=== PATIENT | female | born 1990 | race African-American/Black ===

== ENCOUNTER 2018-06-18 16:21 | Observation (INO) ==
--- NOTE | 2018-06-18 16:40 | Emergency Department Note ---
ED Disposition Clinical Impression: Addisons disease, Dehydration, Hypocalcemia Disposition: Still a Patient Condition on Discharge: Fair Referrals: Provider,Referral, [Primary Care Provider] - - Critical Care Critical Care Time: No Attestation: On 06/18/18, the high probability of a clinically significant, sudden or life threatening deterioration of the following system(s) required my full and direct attention, intervention and personal management. The time I documented below is in addition to time spent performing reported procedures but includes the following listed in this critical care notation. Medical Decision Making - Baldo Inquiry Pt receiving controlled substance: No Vital Signs: 06/18/18 16:22 06/18/18 18:23 Temperature 99.9 F H Temperature Source Oral Pulse Rate [Left Radial] 133 H 115 H Respiratory Rate 24 16 Blood Pressure [Right Arm] 123/78 132/83 Blood Pressure Mean [Right Arm] 93 99 Blood Pressure Source [Right Arm] Automatic Cuff Automatic Cuff Blood Pressure Position [Right Arm] Sitting Sitting 02 Sat by Pulse Oximetry 98 98 Oxygen Delivery Method Room Air Room Air - Lab Data Lab Results 06/18/18 16:32: Urine Color Yellow, Urine Appearance Clear, Urine pH 7.5, Ur Specific [place] 1.010, Urine Protein Negative, Urine Glucose (UA) Negative, Urine Ketones Negative, Urine Blood Negative, Urine Nitrate Negative, Urine Bilirubin Negative, Urine Urobilinogen 0.2, Ur Leukocyte Esterase Negative, U rine RBC None, Urine WBC None, Ur Squamous Epith Cells Occasional, Urine Bacteria Trace 06/18/18 16:32: Urine Opiates Screen Positive H, Urine Methadone Screen Negative, Ur Barbituates Screen Negative, Ur Phencyclidine Scrn Negative, Ur Amphetamines Screen Negative, U Benzodiazepines Scrn Negative, Urine Cocaine Screen Negative, U Marijuana (THC) Screen Positive H 06/18/18 16:32: Urine HCG, Qual Negative 06/18/18 16:57: WBC 13.1 H, RBC 5.72 H, Hgb 14.8, Hct 46.6, MCV 81.5, MCH 25.9 L , MCHC 31.8, RDW 14.7, Plt Count 698 H, MPV 7.2 L, Neut % (Auto) 60.6, Lymph % (Auto) 27.1, [place] % (Auto) 10.7 H, Eos % (Auto) 1.1, Baso % (Auto) 0.4, Neut # (Auto) 8.0 H, Lymph # (Auto) 3.6, [place] # (Auto) 1.4 H, Eos # (Auto) 0.2, Baso # (Auto) 0.1 06/18/18 16:57: Sodium 129 L, Potassium 4.0, Chloride 91 L, Carbon Dioxide 27, Anion Gap 15.0, BUN 6 L, Creatinine 0.76, Estimated Creat Clear 82, Estimated GFR 90, Est GFR ( Amer) 109, Glucose 88, Calcium 7.5 L, Total Bilirubin 0.5, AST 69 H, ALT 47, Alkaline Phosphatase 152 H, Total Protein 8.4 H, Albumin 3.4, Globulin 5.0 H, Albumin/Globulin Ratio 0.7 L 06/18/18 16:57: Lactate 1.7 06/18/18 17:10: Influenza Type A Ag Negative, Influenza Type B Ag Negative Result diagrams: 06/18/18 16:57 06/18/18 16:57 Orders (Tests/Meds): ED MEDICATIONS Generic Name Dose Route Start Last Admin Trade Name Freq PRN Reason Stop Dose Admin Sodium Chloride 1,000 mls @ 999 mls/hr 06/18/18 16:45 06/18/18 16:51 Sod Chlor 0.9% 1000ml Bag IV 06/18/18 17:45 999 mls/hr .[id number] LIONEL Administration Discontinued Medications Generic Name Dose Route Start Last Admin Trade Name Freq PRN Reason Stop Dose Admin Hydrocortisone Sodium Succinate 100 mg 06/18/18 16:39 06/18/18 16:51 Solu-Cortef 100mg Vial IV 06/18/18 16:40 100 mg ONCE ONE Administration Ketorolac Tromethamine 15 mg 06/18/18 18:10 06/18/18 18:20 Toradol 30mg/Ml Vial IV 06/18/18 18:11 15 mg ONCE ONE Administration ORDERS Category Date Time Status XR chest portable Stat Exams 06/18/18 16:40 Taken Blood Culture Stat Micro 06/18/18 16:57 Ordered - Radiology Data #1 Image(s): Chest Image Reviewed: Yes I reviewed the patient's radiology image No acute disease. Probable nipple shadow on right. - ECG Data Tracing #1 EKG interpreted by Richie uLke MD: Rhythm: sinus tachycardia Rate: [address]: normal Ectopy: none Conduction: normal ST Segment Changes: none T Wave Changes: none Q Waves: none No evidence of acute ischemia or injury - Physician Consults Physician Consulted: Guille Time: 18:26 Reason -: Admission Comment/Response: Agrees to admit the patient to the hospital. We discussed the patient's clinical information, including history, exam, laboratory and radiology results and ED course. Per hospital procedure, I will write temporary bridge inpatient orders on the patient. Specific orders requested by the admitt ing physician: Admit to Dr. Han. Continue IV fluids, restart calcium, prednisone, Florinef. Medical Decision Narrative: 6:14 PM: Discussed test results. Discussed positive drug test. She states she took a couple of pills from a friend 2 days ago. States she smoked marijuana last night. General Adult HPI - General Chief complaint: Weakness Stated complaint: Weakness, Poor urine output Time Seen by Provider: 06/18/18 16:30 Mode of Arrival: EMS Limitations: No Limitations Description of Symptoms (Recalled from ER Triage Doc. by RN): to ed per squad with c/o generalized weakness, fatique, back pain, decreased urine output. hx of autoimmune dz pt states out of prednisone x 1 week. states PCP dismissed her and she has not found a new dr. c/o fever chills at home. - History of Present Illness HPI narrative: Brought in by ambulance. Complains of generalized weakness, low back pain, subjective low-grade fever, decreased urinary output for the past several days. States she believes it is because she ran out of her steroids 1 wk ago. She has [place]'s disease and is on Florinef and prednisone. She says that she ran out 1 week ago because she no longer has a primary care provider. Her last primary care provider dismissed her because of missed appointments. She also used to see a specialist at [facility] in [place] and they dismissed her because of missed appointments as well. Denies vomiting or diarrhea. She is a smoker. Nondrinker. Denies current drug use, but states that she is a former user. IV heroin and snorting heroin, last used a couple of months ago. States that she was on Florinef 0.1 mg daily and prednisone 10 mg daily. States that prednisone works better for her than hydrocortisone orally, but when she needs intravenous meds, hydrocortisone or Solu-Medrol is used. - Related Data Home Medications Medication Instructions Recorded Confirmed Calcium Carbonate [Calcium] 1,000 mg PO BID 12/31/17 06/18/18 predniSONE [Prednisone 20mg 20 mg PO DAILY 12/31/17 06/18/18 Tab] Allergies Allergy/AdvReac Type Severity Reaction Status Date / Time vancomycin [VANCOMYCIN] Allergy Severe SWELLING Verified 12/31/17 17:26 [facility] History - Hepatitis A Screen Drug use history?: No High risk sexual behaviors?: No History of sexually transmitted infection?: No Currently employed?: No Childcare worker?: No Do you have indoor plumbing?: Yes Do you have electricity?: Yes Attestation statement:: This patient has been screened for Hepatitis A risk factors. Medical History: Denies:: Diabetes Mellitus Type 1, Diabetes Mellitus Type 2 Laterality Cases: Bilateral: Tonsillectomy - Social History Smoking Status: Current every day smoker Tobacco Type: cigarettes Alcohol Intake: never Substance Use Type: heroin - Psychiatric History Expresses thoughts of harming self/others: None Suicide Plan Description: No Plan ROS Obtained: Yes All systems reviewed & no additional complaints - Constitutional Constitutional: Reports fatigue, Reports fever(s), Reports malaise, Reports weakness - Gastrointestinal Gastrointestingal: Denies: abdominal pain, diarrhea, nausea, vomiting - Musculoskeletal Musculoskeletal: Reports back pain Physical Exam - General General appearance: alert, in no apparent distress, cachectic - Head Head exam: atraumatic, normocephalic - Eye Eye exam: Present: PERRL, EOMI - ENT ENT exam: Present: mucous membranes dry - Neck Neck exam: Present: normal inspection, trachea midline - Chest Chest inspection: Present: normal inspection, symmetric chest wall rise - Respiratory Respiratory exam: Present: normal lung sounds bilaterally. Absent: respiratory distress - Cardiovascular Cardiovascular exam: Present: normal rhythm, tachycardia, normal heart sounds - Abdominal Exam Abdominal exam: Present: soft. Absent: distention, tenderness - Extremities Exam Extremities exam: Present: normal inspection. Absent: pedal edema - Neurological Exam Neurological exam: Present: alert, oriented X3, CN II-XII intact. Absent: motor sensory deficit - Psychiatric Psychiatric exam: Present: flat affect - Skin Skin exam: Present: warm, dry, other (vitiligo)
[2018-06-18 17:05] LABS: Amphetamine/Metha Screen,Urine Negative ng/mL (<1000); Barbiturates Screen,Urine Negative ng/mL (<200); Benzodiazepines Screen,Urine Negative ng/mL (<200); Cannabinoid Screen,Urine Positive ng/mL (<50); Cocaine Screen,Urine Negative ng/mL (<300); Methadone Screen,Urine Negative ng/mL (<300); Opiate Screen,Urine Positive ng/mL (<300); Phencyclidine Screen,Urine Negative ng/mL (<25)
[2018-06-18 17:11] LABS: Basophils # 0.1 K/mm3 (0-0.2); Basophils % 0.4 % (0.1-2.0); Eosinophils # 0.2 K/mm3 (0.0-0.4); Eosinophils % 1.1 % (0.1-12.0); Hematocrit 46.6 % (37.0-47.0); Hemoglobin 14.8 g/dL (12.2-16.2); Lymphocytes # 3.6 K/mm3 (0.7-4.5); Lymphocytes % 27.1 % (10-50); Mean Corpuscular HGB Conc 31.8 g/dL (31.8-35.4); Mean Corpuscular Hemoglobin 25.9 pg (27.0-31.2); Mean Corpuscular Volume 81.5 fl (81-99); Mean Platelet Volume 7.2 fl (7.4-10.4); Monocytes # 1.4 K/mm3 (0.1-1.0); Monocytes % 10.7 % (1.7-9.3); Neutrophils % 60.6 % (37.0-80.0); Platelet Count 698 K/mm3 (142-424); Red Blood Count 5.72 M/mm3 (4.20-5.40); Red Cell Distribution Width 14.7 % (11.5-17.5); White Blood Count 13.1 K/mm3 (4.8-10.8)
[2018-06-18 17:28] LABS: Albumin Level 3.4 gm/dL (3.4-5.0); Albumin/Globulin Ratio 0.7 (1.1-1.8); Bilirubin,Total 0.5 mg/dL (0.2-1.0); Calcium 7.5 mg/dL (8.5-10.1); Total Protein,Serum 8.4 gm/dL (6.4-8.2)
--- NOTE | 2018-06-18 20:55 | Progress Note ---
Internal Medicine - PN: Subj *Date: 06/18/18 *Time: 20:50 Interval history: This 28-year-old black female was admitted from the emergency room. 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 She states that she has not had steroid medication over the past week and has become ill. She is having diarrhea. Nausea without vomiting. She does not have a primary care physician. She was dismissed from the practice due to her missing appointments. She has been an IV drug user. Her drug screen on admission shows positivity for opioids and for marijuana. She states that she has not used heroin in about 2 months but took some prescription pain medicine 2 days ago. She was hydrated and tachycardic on admission to the emergency room. Her heart rate was in excess of 120. This has stabilized with some IV fluids infused. Her current heart rate is 100. She has also received IV steroids. She complains of watery diarrhea and requests Imodium. Her white blood cell count was elevated and her temperature is 99 degrees. Exam Vital signs and Labs for Last 24 Hours: Temp Pulse Resp BP Pulse Ox 98.5 F 86 17 129/79 98 06/18/18 19:59 06/18/18 19:59 06/18/18 19:59 06/18/18 19:59 06/18/18 18:23 Laboratory Results - last 24 hr 06/18/18 16:32: Urine Color Yellow, Urine Appearance Clear, Urine pH 7.5, Ur Specific [place] 1.010, Urine Protein Negative, Urine Glucose (UA) Negative, Urine Ketones Negative, Urine Blood Negative, Urine Nitrate Negative, Urine Bilirubin Negative, Urine Urobilinogen 0.2, Ur Leukocyte Esterase Negative, Urine RBC None, Urine WBC None, Ur Squamous Epith Cells Occasional, Urine Bacteria Trace 06/18/18 16:32: Urine Opiates Screen Positive H, Urine Methadone Screen Negative, Ur Barbituates Screen Negative, Ur Phencyclidine Scrn Negative, Ur Amphetamines Screen Negative, U Benzodiazepines Scrn Negative, Urine Cocaine Screen Negative, U Marijuana (THC) Screen Positive H 06/18/18 16:32: Urine HCG, Qual Negative 06/18/18 16:57: WBC 13.1 H, RBC 5.72 H, Hgb 14.8, Hct 46.6, MCV 81.5, MCH 25.9 L , MCHC 31.8, RDW 14.7, Plt Count 698 H, MPV 7.2 L, Neut % (Auto) 60.6, Lymph % (Auto) 27.1, [place] % (Auto) 10.7 H, Eos % (Auto) 1.1, Baso % (Auto) 0.4, Neut # (Auto) 8.0 H, Lymph # (Auto) 3.6, [place] # (Auto) 1.4 H, Eos # (Auto) 0.2, Baso # (Auto) 0.1 06/18/18 16:57: Sodium 129 L, Potassium 4.0, Chloride 91 L, Carbon Dioxide 27, Anion Gap 15.0, BUN 6 L, Creatinine 0.76, Estimated Creat Clear 82, Estimated GFR 90, Est GFR ( Amer) 109, Glucose 88, Calcium 7.5 L, Total Bilirubin 0.5, AST 69 H, ALT 47, Alkaline Phosphatase 152 H, Total Protein 8.4 H, Albumin 3.4, Globulin 5.0 H, Albumin/Globulin Ratio 0.7 L 06/18/18 16:57: Lactate 1.7 06/18/18 17:10: Influenza Type A Ag Negative, Influenza Type B Ag Negative I & O for Last 24 hours: Intake & Output 06/16/18 06/17/18 06/18/18 06/19/18 11:59 11:59 11:59 11:59 Weight 105 lb - Constitutional chronically ill appearing - *Routine HEENT Exam Head: Present: normocephalic Eye: Present: PERRL ENT: Present: mucous membranes dry (She has areas of vitiligo in the periorbital areas and at the corners of her mouth.) - *Routine Neck Exam Present: supple - Routine Chest/Breast/Axilla Exam Chest wall: Absent: tenderness - *Routine Respiratory Exam Present: CTA bilaterally - *Routine Cardiovascular Exam Comments: Heart rate is 100 and regular. I do not hear murmur. - *Routine Abdominal Exam Present: soft Comments: Mild tenderness without any guarding. Bowel sounds are present. - *Routine Rectal Exam Comments: Not done - *Routine Exam Comments: Not done. - *Routine Extremities Exam Absent: edema Comments: Tattoo at the left wrist ventral aspect "Love." Some track garcía are present. There is no leg edema. - *Routine Neurological Exam Present: alert, oriented X3 Assessment and Plan (1) Dehydration Current visit: Yes Status: Acute Category: Medical Code(s): E86.0 - Dehydration (2) [place]'s disease Current visit: Yes Status: Acute Category: Medical Code(s): E27.1 - Primary adrenocortical insufficiency (3) Elevated white blood cell count Current visit: Yes Status: Acute Category: Medical Code(s): D72.829 - Elevated white blood cell count, unspecified (4) Diarrhea Current visit: Yes Status: Acute Category: Medical Code(s): R19.7 - Diarrhea, unspecified (5) Opioid abuse Current visit: Yes Status: Acute Category: Medical Code(s): F11.10 - Opioid abuse, uncomplicated (6) Hypocalcemia Current visit: Yes Status: Acute Category: Medical Code(s): E83.51 - Hypocalcemia (7) Vitiligo Current visit: No Status: Acute Category: Medical Code(s): L80 - Vitiligo - Assessment and plan all Dx Assessment and Plan for all problems:: See orders. Blood culture was obtained. Diarrhea panel will be obtained. She is receiving IV fluids and steroids. Scan of the abdomen and pelvis will be ordered.
--- NOTE | 2018-06-19 08:03 | Pharmacy Consult Notes ---
[facility] Pharmacy VTE Monitoring - Patient Demographics Admission date: 06/19/18 Report Date: 06/19/18 Time: 08:03 Allergies/Adverse Reactions: Patient Allergies vancomycin [VANCOMYCIN] Allergy (Severe, Verified 12/31/17 17:26) SWELLING Height: 1.52 m Weight: 38.158 kg Patient Problems: Current Active Problems Padilla's disease (Acute) Dehydration (Acute) Hypocalcemia (Acute) Diarrhea (Acute) Opioid abuse (Acute) Elevated white blood cell count (Acute) - VTE Risk Labs: VTE Related Lab Results Hgb 14.8 g/dL (12.2-16.2) 06/18/18 16:57 Hct 46.6 % (37.0-47.0) 06/18/18 16:57 Plt Count 698 K/mm3 (142-424) H 06/18/18 16:57 BUN 6 mg/dL (7-18) L 06/18/18 16:57 Creatinine 0.76 mg/dL (0.55-1.02) 06/18/18 16:57 Estimated Creat Clear 82 mL/min (50-200) 06/18/18 16:57 Was VTE Risk Assessment Performed: Yes VTE Score: 0 VTE Risk Level: Very Low Risk Clinical Trial Participant: No - Prophylaxis VTE Prophylaxis Ordered?: Yes Types of VTE Prophylaxis: TEDS Knee High
[2018-06-19 08:16] LABS: Basophils % 0.2 % (0.1-2.0); Eosinophils # 0.2 K/mm3 (0.0-0.4); Eosinophils % 1.2 % (0.1-12.0); Hematocrit 43.3 % (37.0-47.0); Hemoglobin 13.9 g/dL (12.2-16.2); Lymphocytes # 3.9 K/mm3 (0.7-4.5); Lymphocytes % 19.3 % (10-50); Mean Corpuscular Hemoglobin 25.8 pg (27.0-31.2); Mean Corpuscular Volume 80.6 fl (81-99); Mean Platelet Volume 7.3 fl (7.4-10.4); Neutrophils % 74.4 % (37.0-80.0); Red Blood Count 5.38 M/mm3 (4.20-5.40); Red Cell Distribution Width 14.6 % (11.5-17.5)
[2018-06-19 08:27] LABS: Albumin Level 3.2 gm/dL (3.4-5.0); Albumin/Globulin Ratio 0.7 (1.1-1.8); Anion Gap 16.4 mEq/L (5-15); Bilirubin,Total 0.5 mg/dL (0.2-1.0); Globulin 4.5 gm/dl (1.3-3.2); Potassium 4.4 mmoL/L (3.5-5.1); Total Protein,Serum 7.7 gm/dL (6.4-8.2)
[2018-06-19 08:37] LABS: Calcium 6.5 mg/dL (8.5-10.1)
[2018-06-19 08:39] LABS: Platelet Count 626 K/mm3 (142-424); White Blood Count 19.9 K/mm3 (4.8-10.8)
--- NOTE | 2018-06-19 08:46 | History & Physical Report ---
*Admission Date: 06/19/18 *Chief complaint: chills, fatigue, diarrhea *History of present illness: This 28-year-old black female was admitted from the emergency room. She states that she has [place]'s disease. She states that she has not had steroid medication over the past week and has become ill. She is having diarrhea and nausea without vomiting. She does not have a primary care physician. She was dismissed from the practice due to her missing appointments. She has been an IV drug user. Her drug screen on admission shows positivity for opioids and for marijuana. She states that she has not used heroin in about 2 months but took some prescription pain medicine 2 days ago. She was dehydrated and tachycardic on admission to the emergency room. Her heart rate was in excess of 120. This has stabilized with some IV fluids infused. She has also received IV steroids. She complains of watery diarrhea and requests Imodium. Her white blood cell count was elevated. [facility] History Medical History: Reports:: Renal Disease, Seizures Denies:: Cancer, Diabetes Mellitus Type 1, Diabetes Mellitus Type 2, MRSA Have you ever received a pneumonia vaccine?: No Have you received a flu vaccine this season?: No Other Medical History: Reports: Hypothyroidism, Other (Addisons Disease, Hypoparathyroidism, Autoimmune hepatitis) Laterality Cases: Bilateral: Tonsillectomy Other Surgeries: Yes: Other (Brain sx, Liver bx) Amputation: No Fractures: No - *Social History Educational Level: Attended College Smoking Status: Current every day smoker Tobacco Type: cigarettes # Packs/Day (cigarettes): 1 #Yrs smoked (if former smoker): 11 Alcohol Intake: never Substance Use Type: marijuana, heroin, opiates Last Used Substance: days (ago) Occupational Status: unemployed Housing: house Travel in the last 8 weeks: None - Psychiatric History Expresses thoughts of harming self/others: None Suicide Plan Description: No Plan Comment: COPD Review of Systems - Constitutional Reports body ache(s), Reports chills, Reports fever(s), Reports weakness - Eyes Denies blurry vision, Denies double vision - ENT Denies nasal congestion, Denies sore throat - *Cardiovascular Reports shortness of breath, Reports rapid, pounding, or irregular heartbeat, Denies chest pain - *Respiratory Reports shortness of breath, Denies cough - *Gastrointestinal Reports loose stools, Reports nausea, Denies abdominal pain, Denies vomiting - *Genitourinary Denies difficulty urinating, Denies painful urination - *Musculoskeletal Reports body aches, Denies joint pain - *Neurologic Reports weakness, Denies headache(s), Denies dizziness Meds Home Medications Medication Instructions Recorded Confirmed Type Calcium Carbonate [Calcium] 1,000 mg PO BID 12/31/17 06/18/18 History predniSONE [Prednisone 20mg 20 mg PO DAILY 12/31/17 06/18/18 History Tab] Fludrocortisone Acetate [Florinef 0.1 mg PO DAILY 06/18/18 06/18/18 History 0.1mg tablet] Calcitriol 2 cap PO BID 06/19/18 06/19/18 History Allergies Allergy/AdvReac Type Severity Reaction Status Date / Time vancomycin [VANCOMYCIN] Allergy Severe SWELLING Verified 12/31/17 17:26 Exam Vital signs and Labs for Last 24 Hours: Temp Pulse Resp BP Pulse Ox 98.2 F 85 17 146/91 H 97 06/19/18 04:20 06/19/18 04:20 06/19/18 04:20 06/19/18 04:20 06/19/18 07:54 Laboratory Results - last 24 hr 06/18/18 16:32: Urine Color Yellow, Urine Appearance Clear, Urine pH 7.5, Ur Specific [place] 1.010, Urine Protein Negative, Urine Glucose (UA) Negative, Urine Ketones Negative, Urine Blood Negative, Urine Nitrate Negative, Urine Bilirubin Negative, Urine Urobilinogen 0.2, Ur Leukocyte Esterase Negative, Urine RBC None, Urine WBC None, Ur Squamous Epith Cells Occasional, Urine Bacteria Trace 06/18/18 16:32: Urine Opiates Screen Positive H, Urine Methadone Screen Negative, Ur Barbituates Screen Negative, Ur Phencyclidine Scrn Negative, Ur Amphetamines Screen Negative, U Benzodiazepines Scrn Negative, Urine Cocaine Screen Negative, U Marijuana (THC) Screen Positive H 06/18/18 16:32: Urine HCG, Qual Negative 06/18/18 16:57: WBC 13.1 H, RBC 5.72 H, Hgb 14.8, Hct 46.6, MCV 81.5, MCH 25.9 L , MCHC 31.8, RDW 14.7, Plt Count 698 H, MPV 7.2 L, Neut % (Auto) 60.6, Lymph % (Auto) 27.1, [place] % (Auto) 10.7 H, Eos % (Auto) 1.1, Baso % (Auto) 0.4, Neut # (Auto) 8.0 H, Lymph # (Auto) 3.6, [place] # (Auto) 1.4 H, Eos # (Auto) 0.2, Baso # (Auto) 0.1 06/18/18 16:57: Sodium 129 L, Potassium 4.0, Chloride 91 L, Carbon Dioxide 27, Anion Gap 15.0, BUN 6 L, Creatinine 0.76, Estimated Creat Clear 82, Estimated GFR 90, Est GFR ( Amer) 109, Glucose 88, Calcium 7.5 L, Total Bilirubin 0.5, AST 69 H, ALT 47, Alkaline Phosphatase 152 H, Total Protein 8.4 H, Albumin 3.4, Globulin 5.0 H, Albumin/Globulin Ratio 0.7 L 06/18/18 16:57: Lactate 1.7 06/18/18 16:57: TSH 7.55 H 06/18/18 17:10: Influenza Type A Ag Negative, Influenza Type B Ag Negative 06/18/18 22:15: Stl Aeromonas (PCR) Not detected, Stl C. cayetanensis PCR Not de tected, Stool Rotavirus (PCR) Not detected, Stl Adenov F 40/41 PCR Not detected, Stool Astrovirus (PCR) Not detected, Stool Campylobacter PCR Not detected, Stl C.difficile Tox PCR Detected A, Stool Cryptosporidium PCR Not detected, Stl E.coli Shiga Tox PCR Not detected, Stool E coli O157 PCR Not detected, Stl Enterotoxigenic E PCR Not detected, Stool EPEC (PCR) Not detected, Stool EAEC (PCR) Not detected, Stl E. histolytica PCR Not detected, Stool Giardia Lamblia PCR Not detected, Stool Salmonella PCR Not detected, Stool Sapovirus (PCR) Not detected, Stl P. shigelloides PCR Not detected, Stl Shigella/EIEC PCR Not detected, St Y.enterocolitica PCR Not detected, Stool Vibrio (PCR) Not detected, Stl Vibrio cholerae PCR Not detected, Stl Norovirus GI/GII PCR Not detected 06/19/18 08:05: Sodium 126 L, Potassium 4.4, Chloride 92 L, Carbon Dioxide 22, Anion Gap 16.4 H, BUN 6 L, Creatinine 0.72, Estimated Creat Clear 69, Estimated GFR 96, Est GFR ( Amer) 116, Glucose 97, Calcium 6.5 L D, Total Bilirubin 0.5, AST 56 H, ALT 43, Alkaline Phosphatase 139 H, Total Protein 7.7, Albumin 3.2 L, Globulin 4.5 H, Albumin/Globulin Ratio 0.7 L 06/19/18 08:05: WBC 19.9 H D, RBC 5.38, Hgb 13.9, Hct 43.3, MCV 80.6 L, MCH 25.8 L, MCHC 32.0, RDW 14.6, Plt Count 626 H, MPV 7.3 L, Neut % (Auto) 74.4, Lymph % (Auto) 19.3, [place] % (Auto) 5.0, Eos % (Auto) 1.2, Baso % (Auto) 0.2, Neut # (Auto) 15.0 H, Lymph # (Auto) 3.9, [place] # (Auto) 1.0, Eos # (Auto) 0.2, Baso # (Auto) 0.0 I & O for Last 24 hours: Intake & Output 06/16/18 06/17/18 06/18/18 06/19/18 11:59 11:59 11:59 11:59 Intake Total 360 / 360 Balance 360 / 360 Weight 84 lb 2 oz - Constitutional no acute distress - *Routine HEENT Exam Head: Present: normocephalic Eye: Present: EOMI, PERRL ENT: Present: mucous membranes moist Comments: She has areas of vitiligo in the periorbital areas and at the corners of her mouth. - *Routine Neck Exam Present: supple. Absent: lymphadenopathy - *Routine Respiratory Exam Present: CTA bilaterally - *Routine Cardiovascular Exam Present: RRR - *Routine Abdominal Exam Present: soft, normoactive bowel sounds. Absent: tenderness - *Routine Extremities Exam Absent: cyanosis, clubbing, edema - *Routine Skin Exam Present: warm. Absent: rash - *Routine Neurological Exam Present: alert, oriented X3 H&P: Result - Impressions CXR - No acute finding. Possible nipple shadow on the right which may be be confirmed with PA and lateral chest x-ray with nipple markers Assessment and Plan (1) Clostridium difficile colitis Current visit: Yes Status: Acute Category: Medical Code(s): A04.72 - Enterocolitis due to Clostridium difficile, not specified as recurrent (2) Dehydration Current visit: Yes Status: Acute Category: Medical Code(s): E86.0 - Dehydration (3) [place]'s disease Current visit: Yes Status: Acute Category: Medical Code(s): E27.1 - Primary adrenocortical insufficiency (4) Elevated white blood cell count Current visit: Yes Status: Acute Category: Medical Code(s): D72.829 - Elevated white blood cell count, unspecified (5) Diarrhea Current visit: Yes Status: Acute Category: Medical Code(s): R19.7 - Diarrhea, unspecified (6) Opioid abuse Current visit: Yes Status: Acute Category: Medical Code(s): F11.10 - Opioid abuse, uncomplicated (7) Hypocalcemia Current visit: Yes Status: Acute Category: Medical Code(s): E83.51 - Hypocalcemia (8) Vitiligo Current visit: No Status: Acute Category: Medical Code(s): L80 - Vitiligo (9) Hyponatremia Current visit: Yes Status: Acute Category: Medical Code(s): E87.1 - Hypo- osmolality and hyponatremia (10) Hypothyroidism Current visit: No Status: Acute Category: Medical Code(s): E03.9 - Hypothyroidism, unspecified - Assessment and plan all Dx Assessment and Plan for all problems:: Patient is back on her steroids. She has C.Diff. Will start on flagyl. Will continue to monitor labs.
[2018-06-19 11:55] LABS: Lymphocytes % 19 % (10-50); Monocytes % 3 % (2-9); Neutrophils % 78 % (42-76); Total Cells Counted 100
[2018-06-19 12:00] LABS: Hypochromasia 1+
--- NOTE | 2018-06-20 08:36 | Progress Note ---
Internal Medicine - PN: Subj *Date: 06/20/18 *Time: 08:33 Interval history: Patient states she is still having watery stool. She denies any pain this morning and slept well last night. She is able to eat. She is requesting some Diflucan for thrush. Exam Vital signs and Labs for Last 24 Hours: Temp Pulse Resp BP Pulse Ox 97.7 F 77 17 147/93 H 100 06/20/18 04:00 06/20/18 04:00 06/20/18 04:00 06/20/18 04:00 06/20/18 04:00 Laboratory Results - last 24 hr 06/19/18 08:05: Sodium 126 L, Potassium 4.4, Chloride 92 L, Carbon Dioxide 22, Anion Gap 16.4 H, BUN 6 L, Creatinine 0.72, Estimated Creat Clear 69, Estimated GFR 96, Est GFR ( Amer) 116, Glucose 97, Calcium 6.5 L D, Total Bilirubin 0.5, AST 56 H, ALT 43, Alkaline Phosphatase 139 H, Total Protein 7.7, Albumin 3.2 L, Globulin 4.5 H, Albumin/Globulin Ratio 0.7 L 06/19/18 08:05: WBC 19.9 H D, RBC 5.38, Hgb 13.9, Hct 43.3, MCV 80.6 L, MCH 25.8 L, MCHC 32.0, RDW 14.6, Plt Count 626 H, MPV 7.3 L, Neut % (Auto) 74.4, Lymph % (Auto) 19.3, [place] % (Auto) 5.0, Eos % (Auto) 1.2, Baso % (Auto) 0.2, Neut # (Auto) 15.0 H, Lymph # (Auto) 3.9, [place] # (Auto) 1.0, Eos # (Auto) 0.2, Baso # (Auto) 0.0, Total Counted 100, Neutrophils % (Manual) 78 H, Lymphocytes % (Manual) 19, Monocytes % (Manual) 3, Platelet Estimate Moderate increase, Hypochromasia 1+ I & O for Last 24 hours: Intake & Output 06/17/18 06/18/18 06/19/18 06/20/18 11:59 11:59 11:59 11:59 Intake Total 360 / 360 4129.7 / 4129.7 Balance 360 / 360 4129.7 / 4129.7 Weight 84 lb 2 oz Microbiology Reports for the Last 24 Hours: Microbiology 06/18/18 16:32 Urine,Clean Catch Urine Culture - Preliminary NO GROWTH AFTER 24 HOURS - Constitutional no acute distress - *Routine HEENT Exam Comments: White patches on buccal mucosa - *Routine Respiratory Exam Present: CTA bilaterally - *Routine Cardiovascular Exam Present: RRR - *Routine Abdominal Exam Present: soft, normoactive bowel sounds. 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 (4) Elevated white blood cell count Current visit: Yes Status: Acute Category: Medical Code(s): D72.829 - Elevated white blood cell count, unspecified (5) Diarrhea Current visit: Yes Status: Acute Category: Medical Code(s): R19.7 - Diarrhea, unspecified (6) Opioid abuse Current visit: Yes Status: Acute Category: Medical Code(s): F11.10 - Opioid abuse, uncomplicated (7) Hypocalcemia Current visit: Yes Status: Acute Category: Medical Code(s): E83.51 - Hypocalcemia (8) Vitiligo Current visit: No Status: Acute Category: Medical Code(s): L80 - Vitiligo (9) Hyponatremia Current visit: Yes Status: Acute Category: Medical Code(s): E87.1 - Hypo- osmolality and hyponatremia (10) Hypothyroidism Current visit: No Status: Acute Category: Medical Code(s): E03.9 - Hypothyroidism, unspecified (11) Thrush Current visit: Yes Status: Acute Category: Medical Code(s): B37.0 - Candidal stomatitis - Assessment and plan all Dx Assessment and Plan for all problems:: Will continue Flagyl for C. difficile. Will add Diflucan for thrush. Further per Dr. wilson.
[2018-06-20 10:00] LABS: Basophils % 0.2 % (0.1-2.0); Eosinophils % 0.3 % (0.1-12.0); Hematocrit 42.9 % (37.0-47.0); Hemoglobin 14.2 g/dL (12.2-16.2); Lymphocytes # 3.9 K/mm3 (0.7-4.5); Lymphocytes % 31.8 % (10-50); Mean Corpuscular HGB Conc 33.1 g/dL (31.8-35.4); Mean Corpuscular Hemoglobin 25.9 pg (27.0-31.2); Mean Corpuscular Volume 78.4 fl (81-99); Mean Platelet Volume 7.2 fl (7.4-10.4); Monocytes % 8.3 % (1.7-9.3); Neutrophils # 7.3 K/mm3 (1.8-7.8); Neutrophils % 59.4 % (37.0-80.0); Platelet Count 600 K/mm3 (142-424); Red Blood Count 5.47 M/mm3 (4.20-5.40); Red Cell Distribution Width 14.2 % (11.5-17.5); White Blood Count 12.3 K/mm3 (4.8-10.8)
[2018-06-20 10:11] LABS: Albumin/Globulin Ratio 0.7 (1.1-1.8); Anion Gap 14.1 mEq/L (5-15); Bilirubin,Total 0.6 mg/dL (0.2-1.0); Globulin 4.2 gm/dl (1.3-3.2); Potassium 3.1 mmoL/L (3.5-5.1); Total Protein,Serum 7.2 gm/dL (6.4-8.2)
[2018-06-20 10:12] LABS: Calcium 6.3 mg/dL (8.5-10.1)
--- NOTE | 2018-06-20 10:54 | Progress Note ---
Acute Rapid Response Note - Subjective Date Responded: 06/20/18 Time Responded: 10:30 Provider Note: Rapid response called. Nurses states that the patient's monitor indicated ventricular tachycardia, but when they responded she was actually having a seizure and the monitor strip was actually artifact due to her motion. She does have a history of a seizure disorder, but apparently was only taking Keppra as needed. When I saw her in the emergency department on initial presentation, she did not list Her as a medication at all. She has not been administered Keppra in the hospital. She apparently was fine this morning, ambulatory, and given her morning medications. She had just finished having a seizure when I arrived. She was postictal, unresponsive, with dilated but reactive pupils. She had been incontinent and had bitten her tongue or lip and had some blood in her mouth. She subsequently had a total of 3 more seizures, all brief. Treated with a total of 3 mg of Ativan. Pharmacy was consulted for Keppra dose and Keppra 500 mg IV was initiated emergently. The patient had apparently stopped seizing for approximately 10-15 minutes but was still postictal when I left the bedside. She was on nonrebreather mask oxygen with a pulse oximetry of 100%. Heart rate was around 100, normal sinus rhythm. Blood pressure was in the 150/100 range. - Objective Findings: Vital Signs - Last 4 Hours Temperature 97.3 F L 06/20/18 08:00 Temperature Source Oral 06/20/18 08:00 Pulse Rate 82 06/20/18 08:00 Respiratory Rate 16 06/20/18 08:00 Blood Pressure 135/93 H 06/20/18 08:00 Blood Pressure Mean 107 06/20/18 08:00 Blood Pressure Source Automatic Cuff 06/20/18 08:00 Blood Pressure Position Supine 06/20/18 08:00 02 Sat by Pulse Oximetry 100 06/20/18 08:00 Oxygen Delivery Method 06/20/18 08:00 Lab Results for Past 12 Hours 06/20/18 09:33: Sodium 119 L, Potassium 3.1 L D, Chloride 85 L, Carbon Dioxide 23, Anion Gap 14.1, BUN 3 L D, Creatinine 0.60, Estimated Creat Clear 83, Estimated GFR 118, Est GFR ( Amer) 143 D, Glucose 94, Calcium 6.3 L, Total Bilirubin 0.6, AST 35 D, ALT 33, Alkaline Phosphatase 119 H, Total Prote in 7.2, Albumin 3.0 L, Globulin 4.2 H, Albumin/Globulin Ratio 0.7 L 06/20/18 09:33: WBC 12.3 H D, RBC 5.47 H, Hgb 14.2, Hct 42.9, MCV 78.4 L, MCH 25.9 L, MCHC 33.1, RDW 14.2, Plt Count 600 H, MPV 7.2 L, Neut % (Auto) 59.4, Lymph % (Auto) 31.8, [place] % (Auto) 8.3, Eos % (Auto) 0.3, Baso % (Auto) 0.2, Neut # (Auto) 7.3, Lymph # (Auto) 3.9, [place] # (Auto) 1.0, Eos # (Auto) 0.0, Baso # (Auto) 0.0
[2018-06-20 11:53] LABS: Creatine Kinase 191 U/L (26-192)
--- NOTE | 2018-06-20 12:30 | Progress Note ---
<Rosemarie Wesley - Last Filed: 06/20/18 12:27> Internal Medicine - PN: Subj *Date: 06/20/18 *Time: 12:27 Interval history: The office [facility] was called around 1030 with report that the patient was actively seizing. The ER physician was at the bedside and the patient had received a loading dose of IV Keppra as well as 2 doses of Ativan. The patient continued to seize and received another milligram of Ativan. Dr. Cabrera came to see the patient and ordered a loading dose of IV Dilantin and Ativan as needed for seizing. The seizing continued and she was given 10 mg of rectal Diastat. She continued to seize and received one more dose of ativan and had to be intubated due to status epilepticus. Once intubated, her pressures began dropping and she was started on a Levophed drip. She will be started on propofol and Versed once her pressure is stable. I have spoken with Dr. Michael at ICU and they are going to accept the patient on transfer. Once stable she will be flown to [facility] ICU. Exam Vital signs and Labs for Last 24 Hours: Temp Pulse Resp BP Pulse Ox 97.3 F L 82 16 135/93 H 98 06/20/18 08:00 06/20/18 08:00 06/20/18 08:00 06/20/18 08:00 06/20/18 12:00 Laboratory Results - last 24 hr 06/20/18 09:33: WBC 12.3 H D, RBC 5.47 H, Hgb 14.2, Hct 42.9, MCV 78.4 L, MCH 25.9 L, MCHC 33.1, RDW 14.2, Plt Count 600 H, MPV 7.2 L, Neut % (Auto) 59.4, Lymph % (Auto) 31.8, [place] % (Auto) 8.3, Eos % (Auto) 0.3, Baso % (Auto) 0.2, Neut # (Auto) 7.3, Lymph # (Auto) 3.9, [place] # (Auto) 1.0, Eos # (Auto) 0.0, Baso # (Auto) 0.0 06/20/18 09:33: Sodium 119 L, Potassium 3.1 L D, Chloride 85 L, Carbon Dioxide 23, Anion Gap 14.1, BUN 3 L D, Creatinine 0.60, Estimated Creat Clear 83, Estimated GFR 118, Est GFR ( Amer) 143 D, Glucose 94, Calcium 6.3 L, Total Bilirubin 0.6, AST 35 D, ALT 33, Alkaline Phosphatase 119 H, Total Protein 7.2, Albumin 3.0 L, Globulin 4.2 H, Albumin/Globulin Ratio 0.7 L 06/20/18 09:33: Magnesium 1.1 L 06/20/18 11:13: Total Creatine Kinase 191, CK-MB (CK-2) 1.9, CK-MB (CK-2) Rel Index 1.0, Troponin I < 0.02 I & O for Last 24 hours: Intake & Output 06/18/18 06/19/18 06/20/18 06/21/18 11:59 11:59 11:59 11:59 Intake Total 360 / 360 4609.7 / 4609.7 Balance 360 / 360 4609.7 / 4609.7 Weight 84 lb 2 oz Microbiology Reports for the Last 24 Hours: Microbiology 06/18/18 16:32 Urine,Clean Catch Urine Culture - Preliminary NO GROWTH AFTER 24 HOURS - Constitutional Comments: unresponsive, no longer seizing - *Routine HEENT Exam Eye: Present: PERRL, normal accommodation - *Routine Cardiovascular Exam Present: tachycardia - *Routine Abdominal Exam Present: soft, normoactive bowel sounds. 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 (4) Elevated white blood cell count Current visit: Yes Status: Acute Category: Medical Code(s): D72.829 - Elevated white blood cell count, unspecified (5) Diarrhea Current visit: Yes Status: Acute Category: Medical Code(s): R19.7 - Diarrhea, unspecified (6) Opioid abuse Current visit: Yes Status: Acute Category: Medical Code(s): F11.10 - Opioid abuse, uncomplicated (7) Hypocalcemia Current visit: Yes Status: Acute Category: Medical Code(s): E83.51 - Hypocalcemia (8) Vitiligo Current visit: No Status: Acute Category: Medical Code(s): L80 - Vitiligo (9) Hyponatremia Current visit: Yes Status: Acute Category: Medical Code(s): E87.1 - Hypo- osmolality and hyponatremia (10) Hypothyroidism Current visit: No Status: Acute Category: Medical Code(s): E03.9 - Hypothyroidism, unspecified (11) Thrush Current visit: Yes Status: Acute Category: Medical Code(s): B37.0 - Candidal stomatitis (12) Status epilepticus Current visit: Yes Status: Acute Category: Medical Code(s): G40.901 - Epilepsy, unspecified, not intractable, with status epilepticus - Assessment and plan all Dx Assessment and Plan for all problems:: Patient will be transported to the [facility] ICU under the care of Dr. Michael. The patient's mother has been notified of her current situation. <Ady Cabrera - Last Filed: 06/20/18 16:45> Exam Vital signs and Labs for Last 24 Hours: Temp Pulse Resp BP Pulse Ox 96.5 F L 107 H 18 114/75 100 06/20/18 13:00 06/20/18 13:05 06/20/18 12:15 06/20/18 13:05 06/20/18 13:05 Laboratory Results - last 24 hr 06/20/18 09:33: WBC 12.3 H D, RBC 5.47 H, Hgb 14.2, Hct 42.9, MCV 78.4 L, MCH 25.9 L, MCHC 33.1, RDW 14.2, Plt Count 600 H, MPV 7.2 L, Neut % (Auto) 59.4, Lymph % (Auto) 31.8, [place] % (Auto) 8.3, Eos % (Auto) 0.3, Baso % (Auto) 0.2, Neut # (Auto) 7.3, Lymph # (Auto) 3.9, [place] # (Auto) 1.0, Eos # (Auto) 0.0, Baso # (Auto) 0.0 06/20/18 09:33: Sodium 119 L, Potassium 3.1 L D, Chloride 85 L, Carbon Dioxide 23, Anion Gap 14.1, BUN 3 L D, Creatinine 0.60, Estimated Creat Clear 83, Estimated GFR 118, Est GFR ( Amer) 143 D, Glucose 94, Calcium 6.3 L, Total Bilirubin 0.6, AST 35 D, ALT 33, Alkaline Phosphatase 119 H, Total Protein 7.2, Albumin 3.0 L, Globulin 4.2 H, Albumin/Globulin Ratio 0.7 L 06/20/18 09:33: Magnesium 1.1 L 06/20/18 10:19: Urine Color Yellow, Urine Appearance Clear, Urine pH 7.0, Ur S pecific [place] <= 1.005, Urine Protein Negative, Urine Glucose (UA) Negative, Urine Ketones Negative, Urine Blood Negative, Urine Nitrate Negative, Urine Bilirubin Negative, Urine Urobilinogen 0.2, Ur Leukocyte Esterase Negative, Urine RBC None, Urine WBC Occasional, Ur Squamous Epith Cells Occasional, Urine Bacteria Trace 06/20/18 10:19: Urine Opiates Screen Negative, Urine Methadone Screen Negative, Ur Barbituates Screen Negative, Ur Phencyclidine Scrn Negative, Ur Amphetamines Screen Negative, U Benzodiazepines Scrn Negative, Urine Cocaine Screen Negative, U Marijuana (THC) Screen Negative 06/20/18 11:13: Total Creatine Kinase 191, CK-MB (CK-2) 1.9, CK-MB (CK-2) Rel Index 1.0, Troponin I < 0.02 06/20/18 12:45: Specimen Source L radial, O2 % 50, ABG pH 7.32 L, ABG pCO2 25.3 L, ABG pO2 54.0 L, ABG HCO3 12.7 L, ABG Total CO2 13.4 L, ABG O2 Saturation 85 L*, ABG Base Excess -13.5 L, Ranjith Test Acceptable, Vent Rate 18, Tidal Volume 300, PEEP 5 06/20/18 13:27: POC Glucose 90 I & O for Last 24 hours: Intake & Output 06/18/18 06/19/18 06/20/18 06/21/18 11:59 11:59 11:59 11:59 Intake Total 360 / 360 4609.7 / 4609.7 3057 / 3057 Output Total 1750 / 1750 Balance 360 / 360 4609.7 / 4609.7 1307 / 1307 Weight 84 lb 2 oz Microbiology Reports for the Last 24 Hours: Microbiology 06/18/18 16:32 Urine,Clean Catch Urine Culture - Preliminary NO GROWTH AFTER 24 HOURS Assessment and Plan (1) Status epilepticus Current visit: Yes Status: Acute Category: Medical Code(s): G40.901 - Epilepsy, unspecified, not intractable, with status epilepticus (2) Clostridium difficile colitis Current visit: Yes Status: Acute Category: Medical Code(s): A04.72 - Enterocolitis due to Clostridium difficile, not specified as recurrent (3) Dehydration Current visit: Yes Status: Acute Category: Medical Code(s): E86.0 - Dehydration (4) Perrin's disease Current visit: Yes Status: Acute Category: Medical Code(s): E27.1 - Primary adrenocortical insufficiency (5) Elevated white blood cell count Current visit: Yes Status: Acute Category: Medical Code(s): D72.829 - Elevated white blood cell count, unspecified (6) Diarrhea Current visit: Yes Status: Acute Category: Medical Code(s): R19.7 - Diarrhea, unspecified (7) Opioid abuse Current visit: Yes Status: Acute Category: Medical Code(s): F11.10 - Opioid abuse, uncomplicated (8) Hypocalcemia Current visit: Yes Status: Acute Category: Medical Code(s): E83.51 - Hypocalcemia (9) Vitiligo Current visit: No Status: Acute Category: Medical Code(s): L80 - Vitiligo (10) Hyponatremia Current visit: Yes Status: Acute Category: Medical Code(s): E87.1 - Hypo- osmolality and hyponatremia (11) Hypothyroidism Current visit: No Status: Acute Category: Medical Code(s): E03.9 - Hypothyroidism, unspecified (12) Thrush Current visit: Yes Status: Acute Category: Medical Code(s): B37.0 - Candidal stomatitis (13) Hypotension Current visit: Yes Status: Acute Category: Medical Code(s): I95.9 - Hypotension, unspecified - Assessment and plan all Dx Assessment and Plan for all problems:: Concur with above. 1 hour critical care time spent managing status epileticus, ventilator, hypotension and transfer to tertiary care. Patient remained critical but stable at time of transer to
[2018-06-20 12:45] LABS: Microscopic, Urine URINE MICROSCOPIC (MICROSCOPIC)
[2018-06-20 12:49] LABS: Appearance,Urine CLEAR (Clear); Bilirubin,Urine Negative (Negative); Blood, Urine Negative (Negative); Color,Urine YELLOW (Yellow); Glucose,Urine (UA) Negative (Negative); Ketones,Urine Negative (Negative); Leukocyte Esterase,Urine Negative (Negative); Protein,Urine Negative (Negative); Specific Gravity, Urine <= 1.005 (1.005-1.030); Urobilinogen,Urine 0.2 EU/dl (0.2)
[2018-06-20 13:03] LABS: Amphetamine/Metha Screen,Urine Negative ng/mL (<1000); Barbiturates Screen,Urine Negative ng/mL (<200); Benzodiazepines Screen,Urine Negative ng/mL (<200); Cannabinoid Screen,Urine Negative ng/mL (<50); Cocaine Screen,Urine Negative ng/mL (<300); Methadone Screen,Urine Negative ng/mL (<300); Opiate Screen,Urine Negative ng/mL (<300); Phencyclidine Screen,Urine Negative ng/mL (<25)
[2018-06-20 13:09] LABS: Bacteria,Urine Trace /lpf; Squamous Epithelial Cell,Urine Occasional #/hpf (0-5); WBC,Urine Occasional #/hpf (0-3)
--- NOTE | 2018-06-20 15:04 | Discharge Summary ---
General - General Admission date:: 06/18/18 Discharge date: 06/20/18 HPI HPI: This 28-year-old black female was admitted from the emergency room. 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 She states that she has not had steroid medication over the past week and has become ill. She is having diarrhea and nausea without vomiting. She does not have a primary care physician. She was dismissed from the practice due to her missing appointments. She has been an IV drug user. Her drug screen on admission shows positivity for opioids and for marijuana. She states that she has not used heroin in about 2 months but took some prescription pain medicine 2 days ago. She was dehydrated and tachycardic on admission to the emergency room. Her heart rate was in excess of 120. This has stabilized with some IV fluids infused. She has also received IV steroids. She complains of watery diarrhea and requests Imodium. Her white blood cell count was elevated. Hospital Course Hospital Course: The patient's chest x-ray showed nothing acute. She was placed back on her oral steroids and was eating and drinking normally. Her stool was positive for C. difficile, therefore she was started on oral Flagyl. Her white blood cell count initially increased, but once placed on the Flagyl, it began decreasing. Her sodium and calcium were initially low at 126 and 6.5. IVF's were continued. Her TSH was elevated likely due to being off of all of her medication. She did develop thrush and was started on diflucan. She was doing well and improving until the morning of 06/20/18. She began seizing around 10:30 am. CMP revealed a sodium of 119, a potassium of 3.1, and a calcium of 6.3. She was started on normal saline with 20 mEq of potassium at 100 an hour and was given IV calcium. The ER doctor was notified and a rapid response was called. Nurses stated that the patient's monitor indicated ventricular tachycardia, but when they responded she was actually having a seizure and the monitor strip was artifact due to her motion. She does have a history of a seizure disorder, but apparently was only taking Keppra as needed. When she was seen in the emergency department on initial presentation, she did not list keppra as a medication at all. She had not been administered keppra in the hospital. She he had just finished having a seizure when the ER physician arrived. She was postictal, unresponsive, with dilated but reactive pupils. She had been incontinent and had bitten her tongue or lip and had some blood in her mouth. She subsequently had a total of 3 more seizures, all brief. She was treated with a total of 3 mg of Ativan. Pharmacy was consulted for Keppra dose and Keppra 500 mg IV was initiated emergently. The patient had apparently stopped seizing for approximately 10-15 minutes but was still postictal when the ER physician left the bedside. She was on nonrebreather mask oxygen with a pulse oximetry of 100%. Heart rate was around 100, normal sinus rhythm. Blood pressure was in the 150/100 range. She began seizing again and was moved to the stepdown unit. She was seen by Dr. Cabrera who ordered Ativan prn and a loading dose of Dilantin. These medications were given to the patient and she continued to seize. She was given 10 mg of rectal Diastat. She continued to seize and received one more dose of ativan and had to be intubated due to status epilepticus. Once intubated, the seizures stopped, but her pressures began dropping and she was started on a Levophed drip. She was started on propofol and Versed once her pressure was stable. Rosemarie Wesley PA-C spoke with Dr. Michael at ICU and they accepted the patient on transfer. She will be flown to [facility] ICU for further care and treatment and neurology will be consulted. Objective Vital signs: Temp Pulse Resp BP Pulse Ox 97.3 F L 82 16 135/93 H 98 06/20/18 08:00 06/20/18 08:00 06/20/18 08:00 06/20/18 08:00 06/20/18 12:00 Narrative: - Constitutional no acute distress - *Routine HEENT Exam Head: Present: normocephalic Eye: Present: EOMI, PERRL ENT: Present: mucous membranes moist Comments: She has areas of vitiligo in the periorbital areas and at the corners of her mouth. - *Routine Neck Exam Present: supple. Absent: lymphadenopathy - *Routine Respiratory Exam Present: CTA bilaterally - *Routine Cardiovascular Exam Present: RRR - *Routine Abdominal Exam Present: soft, normoactive bowel sounds. Absent: tenderness - *Routine Extremities Exam Absent: cyanosis, clubbing, edema - *Routine Skin Exam Present: warm. Absent: rash - *Routine Neurological Exam Present: alert, oriented X3 Results Labs on day of discharge: Labs from last 24 hours 06/20/18 06/20/18 06/20/18 13:27 11:13 10:19 WBC RBC Hgb Hct MCV MCH MCHC RDW Plt Count MPV Neut % (Auto) Lymph % (Auto) [place] % (Auto) Eos % (Auto) Baso % (Auto) Neut # (Auto) Lymph # (Auto) [place] # (Auto) Eos # (Auto) Baso # (Auto) Sodium Potassium Chloride Carbon Dioxide Anion Gap BUN Creatinine Estimated Creat Clear Estimated GFR Est GFR ( Amer) Glucose POC Glucose 90 Calcium Magnesium Total Bilirubin AST ALT Alkaline Phosphatase Total Creatine Kinase 191 CK-MB (CK-2) 1.9 CK-MB (CK-2) Rel Index 1.0 Troponin I < 0.02 Total Protein Albumin Globulin Albumin/Globulin Ratio Urine Color Urine Appearance Urine pH Ur Specific [place] Urine Protein Urine Glucose (UA) Urine Ketones Urine Blood Urine Nitrate Urine Bilirubin Urine Urobilinogen Ur Leukocyte Esterase Urine RBC Urine WBC Ur Squamous Epith Cells Urine Bacteria Urine Opiates Screen Negative Urine Methadone Screen Negative Ur Barbituates Screen Negative Ur Phencyclidine Scrn Negative Ur Amphetamines Screen Negative U Benzodiazepines Scrn Negative Urine Cocaine Screen Negative U Marijuana (THC) Screen Negative 06/20/18 06/20/18 06/20/18 10:19 09:33 09:33 WBC RBC Hgb Hct MCV MCH MCHC RDW Plt Count MPV Neut % (Auto) Lymph % (Auto) [place] % (Auto) Eos % (Auto) Baso % (Auto) Neut # (Auto) Lymph # (Auto) [place] # (Auto) Eos # (Auto) Baso # (Auto) Sodium 119 L Potassium 3.1 L D Chloride 85 L Carbon Dioxide 23 Anion Gap 14.1 BUN 3 L D Creatinine 0.60 Estimated Creat Clear 83 Estimated GFR 118 Est GFR ( Amer) 143 D Glucose 94 POC Glucose Calcium 6.3 L Magnesium 1.1 L Total Bilirubin 0.6 AST 35 D ALT 33 Alkaline Phosphatase 119 H Total Creatine Kinase CK-MB (CK-2) CK-MB (CK-2) Rel Index Troponin I Total Protein 7.2 Albumin 3.0 L Globulin 4.2 H Albumin/Globulin Ratio 0.7 L Urine Color Yellow Urine Appearance Clear Urine pH 7.0 Ur Specific [place] <= 1.005 Urine Protein Negative Urine Glucose (UA) Negative Urine Ketones Negative Urine Blood Negative Urine Nitrate Negative Urine Bilirubin Negative Urine Urobilinogen 0.2 Ur Leukocyte Esterase Negative Urine RBC None Urine WBC Occasional Ur Squamous Epith Cells Occasional Urine Bacteria Trace Urine Opiates Screen Urine Methadone Screen Ur Barbituates Screen Ur Phencyclidine Scrn Ur Amphetamines Screen U Benzodiazepines Scrn Urine Cocaine Screen U Marijuana (THC) Screen 06/20/18 09:33 WBC 12.3 H D RBC 5.47 H Hgb 14.2 Hct 42.9 MCV 78.4 L MCH 25.9 L MCHC 33.1 RDW 14.2 Plt Count 600 H MPV 7.2 L Neut % (Auto) 59.4 Lymph % (Auto) 31.8 [place] % (Auto) 8.3 Eos % (Auto) 0.3 Baso % (Auto) 0.2 Neut # (Auto) 7.3 Lymph # (Auto) 3.9 [place] # (Auto) 1.0 Eos # (Auto) 0.0 Baso # (Auto) 0.0 Sodium Potassium Chloride Carbon Dioxide Anion Gap BUN Creatinine Estimated Creat Clear Estimated GFR Est GFR ( Amer) Glucose POC Glucose Calcium Magnesium Total Bilirubin AST ALT Alkaline Phosphatase Total Creatine Kinase CK-MB (CK-2) CK-MB (CK-2) Rel Index Troponin I Total Protein Albumin Globulin Albumin/Globulin Ratio Urine Color Urine Appearance Urine pH Ur Specific [place] Urine Protein Urine Glucose (UA) Urine Ketones Urine Blood Urine Nitrate Urine Bilirubin Urine Urobilinogen Ur Leukocyte Esterase Urine RBC Urine WBC Ur Squamous Epith Cells Urine Bacteria Urine Opiates Screen Urine Methadone Screen Ur Barbituates Screen Ur Phencyclidine Scrn Ur Amphetamines Screen U Benzodiazepines Scrn Urine Cocaine Screen U Marijuana (THC) Screen Preliminary micro results at discharge 06/18/18 16:32 Urine Culture - Preliminary Urine,Clean Catch NO GROWTH AFTER 24 HOURS DS: Diagnosis - Discharge Diagnosis (1) Clostridium difficile colitis Status: Acute (2) Dehydration Status: Acute (3) Panora's disease Status: Acute (4) Elevated white blood cell count Status: Acute (5) Diarrhea Status: Acute (6) Opioid abuse Status: Acute (7) Hypocalcemia Status: Acute (8) Vitiligo Status: Acute (9) Hyponatremia Status: Acute (10) Hypothyroidism Status: Acute (11) Thrush Status: Acute (12) Status epilepticus Status: Acute Discharge Plan - Patient Discharge Instructions ACTIVITY: Other DIET: NPO Patient Instructions: Antibiotic-associated Colitis -- C difficile, DI for Seizure Disorder -- Adult Forms: Transfer Record - Follow up Plan Unknown provider or service follow up:: 06/20/18 13:04 Dr. Michael at ICU Disposition: Xfer Short-Term Hosp Home Medications: Home Medications Medication Instructions Recorded Confirmed Type Fludrocortisone Acetate [Florinef 0.1 mg PO DAILY 06/18/18 06/18/18 History 0.1mg tablet] Aspirin [Aspirin 81mg EC Tab] 81 mg PO DAILY 06/19/18 06/19/18 History Calcitriol 2 cap PO BID 06/19/18 06/19/18 History Furosemide [Furosemide 20mg Tab] 20 mg PO DAILY 06/19/18 06/19/18 History Levothyroxine Sodium 100 mg PO DAILY 06/19/18 06/19/18 History [Levothyroxine 100mcg (0.1MG) Tab] levETIRAcetam [Keppra] 750 mg PO BID 06/19/18 06/19/18 History predniSONE [Deltasone 10mg 10 mg PO DAILY 06/19/18 06/19/18 History tablet] Prescriptions/Medication Reconciliation: No Action Fludrocortisone Acetate [Florinef 0.1mg tablet] 0.1 mg PO DAILY Calcitriol 2 cap PO BID Aspirin [Aspirin 81mg EC Tab] 81 mg PO DAILY predniSONE [Deltasone 10mg tablet] 10 mg PO DAILY Levothyroxine Sodium [Levothyroxine 100mcg (0.1MG) Tab] 100 mg PO DAILY Furosemide [Furosemide 20mg Tab] 20 mg PO DAILY levETIRAcetam [Keppra] 750 mg PO BID
[2018-06-20 15:55] LABS: ABG Base Excess -13.5 mmol/L (-2.4-2.3); ABG HCO3 12.7 mmhg (22.0-26.0); ABG Oxygen Saturation 85 % (90-100); ABG PCO2 25.3 mmhg (35.0-45.0); ABG PH 7.32 mmol/L (7.35-7.45); ABG TCO2 13.4 mmhg (23-27); Tidal Volume 300
[2018-06-20 15:56] LABS: Allen's Test ACCEPTABLE; Oxygen 50 %; PEEP 5
== END 2018-06-20 13:15 | disposition short-term general hospital (02) ==
LOC: 2ND 16:21 → ER 16:21 → 2ND 20:16 → ICU 06-20 11:27
PROVIDERS: ADMIT Family Medicine; ATTEND Family Medicine
CPT/HCPCS: 36415; 71010; 71045; 74178; 80053; 80305; 81001; 81025; 82550; 82553; 82803; 82962; 83605; 83735; 84443; 84484; 85007; 85025; 87040; 87086; 87275; 87276; 87507; 93005; 94002; 96365; 96375; 99285; G0378; J0330; J1953; J2405; J2704; Q9967

== ENCOUNTER 2019-12-28 16:05 | Emergency (ER) | payer OTHER, SELFPAY ==
[2019-12-28] VITALS (53 sets, daily range): BP systolic 61–115; BP diastolic 36–92; PULSE 83–177; RESP 14–19; TEMP 33.3–37.5; O2SAT 80–98; BMI 22.3
--- NOTE | 2019-12-28 16:11 | PC.NURSE ---
pulse check pea no pulse
--- NOTE | 2019-12-28 16:15 | ECG_ITS ---
APPROVED REPORT Exam: Resting ECG HR:129 bpm ECG Measurements Heart Rate 129 AXES LA 136 P QRSd 144 QRS -54 QT 372 T 55 QTc 544 <Conclusion> Sinus tachycardia Right bundle branch block Left anterior fascicular block Bifascicular block Left ventricular hypertrophy with repolarization abnormality Abnormal ECG Electronically signed by : Jason Shelby, 12/29/2019 13:50:44
--- NOTE | 2019-12-28 16:22 | PC.NURSE ---
iv 18 lt EJ
--- NOTE | 2019-12-28 16:26 | PC.NURSE ---
pt admited to hospital per squad at 1605 pt unresponsive ET tube bagged with cpr in progress. report pt's mother found pt with glazed stare then she fell on the floor and was unresponsive. pt was given narcan 4mg at scene. with blood sugar of 390. squad reports pt lost pulse enroute pt was given, total of 4 epis, IO lt leg intubated with 7 et tube at 23 lip. she was given versed prior to intubation.
--- NOTE | 2019-12-28 16:27 | PC.NURSE ---
pulse check no pulse pea on monitor. cpr resumed
--- NOTE | 2019-12-28 16:29 | PC.NURSE ---
cardiac ultrasound with no cardiac activity. cpr resumed
--- NOTE | 2019-12-28 16:30 | PC.NURSE ---
levophed drip increased to 12mcg
--- NOTE | 2019-12-28 16:31 | PC.NURSE ---
pulse check +pulse HR 120
--- NOTE | 2019-12-28 16:39 | [facility].EDCPR ---
ED Disposition Clinical Impression: Cardiac arrest, Hypocalcemia, Acute renal insufficiency, Padilla's disease Sepsis Qualifiers: Sepsis type: sepsis due to unspecified organism Sepsis acute organ dysfunction status: with acute organ dysfunction Severe sepsis acute organ dysfunction type: acute renal failure Acute renal failure type: unspecified Severe sepsis shock status: with septic shock Qualified Code(s): A41.9 - Sepsis, unspecified organism; R65.21 - Severe sepsis with septic shock; N17.9 - Acute kidney failure, unspecified Disposition: Xfer Short-Term Hosp Condition on Discharge: Critical - Critical Care Critical Care Time: Yes Attestation: On , the high probability of a clinically significant, sudden or life threatening deterioration of the following system(s) required my full and direct attention, intervention and personal management. The time I documented below is in addition to time spent performing reported procedures but includes the following listed in this critical care notation. Total Critical Care Time: 65 Vital system(s) involved:: Circulatory Failure, Central Nervous System, Metabolic Failure, Respiratory Failure, Renal Failure, Shock (Septic) My critical care processes included: Assessment & monitoring of V/S, Initial and Re-exams, Data Review/Interpretation, Coordinating Care, Medication Orders and management, Documentation [facility] Code Documentation - Arrest Information Outside of Hospital The Code Document Section documentation for [id number] Sejal Abad was populated with data that defaulted in from the digital imager in the Code Assessment on f_Reg Service Date] to provide within this report, the status and treatment of the patient in the ED during a Code. This documentation will be supplemented with my direct findings within the body of the report. Medical Decision Making - Medical Records Medical records reviewed: Yes: I reviewed the patient's medical records. - Baldo Inquiry Pt receiving controlled substance: No Vital Signs: 12/28/19 16:36 12/28/19 16:40 12/28/19 16:44 Temperature Temperature Source Pulse Rate [Left Radial] 120 H 129 H 134 H Blood Pressure [Right Arm] 112/92 H 68/43 L 75/46 L Blood Pressure Mean [Right Arm] 98 51 55 Blood Pressure Position [Right Arm] Sitting 12/28/19 16:48 12/28/19 17:20 12/28/19 17:28 Temperature Temperature Source Pulse Rate [Left Radial] 129 H 139 H 140 H Blood Pressure [Right Arm] 61/39 L 92/48 L 94/56 L Blood Pressure Mean [Right Arm] 46 62 68 Blood Pressure Position [Right Arm] Sitting Sitting 12/28/19 17:40 12/28/19 17:50 12/28/19 18:00 Temperature 99.5 F Temperature Source Rectal Pulse Rate [Left Radial] 143 H 140 H Blood Pressure [Right Arm] 103/52 L 91/47 L Blood Pressure Mean [Right Arm] 69 61 Blood Pressure Position [Right Arm] Sitting Sitting - Lab Data Lab results reviewed: Yes: I reviewed the patient's lab results. Lab Results 12/28/19 16:27: WBC 48.8 H*, RBC 4.52, Hgb 12.2, Hct 43.6, MCV 96.5, MCH 27.0, MCHC 28.0 L, RDW 15.2, Plt Count 268, MPV 9.2, Neut % (Auto) 77.9, Lymph % (Auto) 19.0, [place] % (Auto) 2.6, Eos % (Auto) 0.1, Baso % (Auto) 0.5, Neut # (Auto) 38.0 H, Lymph # (Auto) 9.2 H, [place] # (Auto) 1.3 H, Eos # (Auto) 0.1, Baso # (Auto) 0.3 H, Total Counted 100, Neutrophils % (Manual) 75, Lymphocytes % (Manual) 19, Monocytes % (Manual) 6, Platelet Estimate Normal, Hypochromasia 2+ 12/28/19 16:27: Sodium 141, Potassium 4.2, Chloride 95 L, Carbon Dioxide 5 L*, Anion Gap 45.2 H, BUN 36 H, Creatinine 2.80 H, Estimated Creat Clear 27, Estimated GFR 20 L, Est GFR ( Amer) 24 L, Glucose 299 H, Calcium 7.9 L, Total Bilirubin 0.9, AST 218 H, ALT 88 H, Alkaline Phosphatase 199 H, Total Protein 6.4, Albumin 3.6, Globulin 2.8, Albumin/Globulin Ratio 1.3, Lipase 190, TSH 5.09 H 12/28/19 16:27: Urine Color Yellow, Urine Appearance Clear, Urine pH 6.5, Ur Specific [place] 1.010, Urine Protein Negative, U
[2019-12-28 16:42] LABS: Microscopic, Urine URINE MICROSCOPIC (MICROSCOPIC)
--- NOTE | 2019-12-28 16:48 | PC.NURSE ---
blood pressure 68/39 levophed increased to 15mcg
[2019-12-28 16:49] LABS: Basophils # 0.3 K/mm3 (0-0.2); Basophils % 0.5 % (0.1-2.0); Eosinophils # 0.1 K/mm3 (0.0-0.4); Eosinophils % 0.1 % (0.1-12.0); Hematocrit 43.6 % (37.0-47.0); Hemoglobin 12.2 g/dL (12.2-16.2); Lymphocytes # 9.2 K/mm3 (0.7-4.5); Mean Corpuscular Volume 96.5 fl (81-99); Mean Platelet Volume 9.2 fl (7.4-10.4); Monocytes # 1.3 K/mm3 (0.1-1.0); Monocytes % 2.6 % (1.7-9.3); Neutrophils % 77.9 % (37.0-80.0); Platelet Count 268 K/mm3 (142-424); Red Blood Count 4.52 M/mm3 (4.20-5.40); Red Cell Distribution Width 15.2 % (11.5-17.5)
[2019-12-28 16:59] LABS: Alanine Aminotransferase 88 U/L (12-78); Albumin Level 3.6 g/dl (3.5-5.0); Albumin/Globulin Ratio 1.3 (1.1-1.8); Alkaline Phosphatase 199 U/L (38-126); Aspartate Amino Transferase 218 U/L (14-36); Bilirubin,Total 0.9 mg/dl (0.2-1.3); Blood Urea Nitrogen 36 mg/dl (7-17); Calcium 7.9 mg/dl (8.4-10.2); Chloride 95 mmol/L (98-107); Creatinine Clearance Estimated 27 mL/min (50-200); Estimated Glomerular Filt Rate 20 ml/min (>60); GFR (African American) 24 ML/MIN (>60); Globulin 2.8 g/dL (1.3-3.2); Glucose 299 mg/dl (74-100); Lipase 190 U/L (23-300); Potassium 4.2 mmoL/L (3.5-5.1); Sodium 141 mmol/L (136-145); Total Protein,Serum 6.4 g/dl (6.3-8.2)
[2019-12-28 17:02] LABS: Appearance,Urine CLEAR (Clear); Bilirubin,Urine Negative (Negative); Blood, Urine Negative (Negative); Color,Urine YELLOW (Yellow); Glucose,Urine (UA) Negative (Negative); Ketones,Urine Negative (Negative); Leukocyte Esterase,Urine Negative (Negative); Nitrate,Urine Negative (Negative); PH,Urine 6.5 (5.0-8.5); Protein,Urine Negative (Negative); Urobilinogen,Urine 0.2 EU/dl (0.2)
[2019-12-28 17:07] LABS: White Blood Count 48.8 K/mm3 (4.8-10.8)
[2019-12-28 17:08] LABS: Anion Gap 45.2 mEq/L (5-15); Carbon Dioxide 5 mmol/L (22.0-30.0); MANUAL DIFFERENTIAL MANUAL DIFFERENTIAL (MANUAL DIFF)
[2019-12-28 17:11] LABS: Troponin I 0.24 ng/ml (0.00-0.034)
--- NOTE | 2019-12-28 17:14 | XR_ITS ---
PROCEDURE: XR CHEST PORTABLE CLINICAL HISTORY: ET TUBE PLACEMENT COMPARISON: [id number] XR chest portable from 06/18/[id number] abdomen pelvis wo/w con from 06/19/2018 FINDINGS: An endotracheal tube is placed with the tip about 3.2 centimeter proximal to the elsy. An electronic battery pack over the gastroesophageal region is seen with three wires over the left upper abdomen.. The lungs are under expanded. Diffuse interstitial pattern mild infiltrates with perihilar subtle hazy opacities is seen in both lungs, suggestive of pneumonia versus mild edema. There is a mild cardiomegaly. Mediastinum and hilar soft tissues are unremarkable. No substantial pleural effusion or pneumothorax is seen. There is generalized bony demineralization. No acute bony pathology is noted. IMPRESSION: 1. Endotracheal tube is appropriately placed in the tracheal airway lumen about 3.2 Centimeter proximal to the elsy. 2. Low lung volumes. Subtle perihilar pulmonary hazy opacities are seen suggestive of pneumonia versus mild edema. 3. Mild cardiomegaly. Dictated by: Naman Melvin 12/28/2019 17:32 Electronically signed by Naman Melvin in [place] 12/28/2019 17:32
[2019-12-28 17:15] LABS: Cocaine Screen,Urine Negative ng/ml (<300)
--- NOTE | 2019-12-28 17:15 | PC.NURSE ---
Pt mother called at this time, gave information on pt health hx. Mother states pt had elevated calcium levels a couple months ago states pt has not been taking calcium in awhile r/t this. Pt mother states cortef does not work for pt, pt needs stress dosing of prednisone at 125mg. Pts endocrine doctor is a Pt has hx of seizures Pt mother reports pt was recently in a methadone clinic but is not going there anymore. Pt mother states pt has had a hx of pulmonary edema r/t opiod use. All of the above information was relayed to CECILIO VAUGHN
--- NOTE | 2019-12-28 17:15 | PC.NURSE ---
RT obtained sputum sample after intubation, tubed sample to the lab
[2019-12-28 17:16] LABS: Methadone Screen,Urine Positive ng/ml (<300); Opiate Screen,Urine Negative ng/ml (<300)
[2019-12-28 17:17] LABS: Bacteria,Urine Trace /lpf; WBC,Urine Occasional #/hpf (0-3)
--- NOTE | 2019-12-28 17:26 | PC.NURSE ---
Dr Do talking to ER for emergency transfere
[2019-12-28 17:30] LABS: Hypochromasia 2+; Lymphocytes % 19 % (10-50); Monocytes % 6 % (2-9); Neutrophils % 75 % (42-76); Platelet Estimate Normal; Thyroid Stimulating Hormone 5.09 uIU/mL (0.465-4.68); Total Cells Counted 100
--- NOTE | 2019-12-28 17:40 | PC.NURSE ---
CECILIO VAUGHN states to hold on vasopressin at this time r/t SBP 103 will continue to monitor
--- NOTE | 2019-12-28 17:45 | PC.NURSE ---
levophed increased to 17mcg
--- NOTE | 2019-12-28 17:45 | PC.NURSE ---
Spoke to [facility], they are paging Dr Vazquez to call Dr Do
[2019-12-28 17:59] LABS: Barbiturates Screen,Urine Negative ng/ml (<200); Benzodiazepines Screen,Urine Negative ng/ml (<200)
[2019-12-28 18:00] LABS: Amphetamine/Metha Screen,Urine Negative ng/ml (<1000)
[2019-12-28 18:01] LABS: Cannabinoid Screen,Urine Negative ng/ml (<50); Phencyclidine Screen,Urine Negative ng/ml (<25)
[2019-12-28 18:17] LABS: Free T4 (Free Thyroxine) 0.61 ng/dl (0.78-2.19)
--- NOTE | 2019-12-28 18:20 | PC.NURSE ---
dr zeus edwards md accepted transfer
--- NOTE | 2019-12-28 18:26 | PC.NURSE ---
[facility] called for possible transport. both declined due to weather
--- NOTE | 2019-12-28 18:40 | PC.NURSE ---
dr espana talking with sister.
--- NOTE | 2019-12-28 18:41 | PC.NURSE ---
levophed increased to 19mcg
--- NOTE | 2019-12-28 18:51 | PC.NURSE ---
sister at bedside
--- NOTE | 2019-12-28 19:01 | PC.NURSE ---
attempted to call report to MICU at nurse states he will have to call back
--- NOTE | 2019-12-28 19:15 | PC.NURSE ---
IVRY Salgado spoke with pharmacy to confirm bicarb dose.
--- NOTE | 2019-12-28 19:23 | PC.NURSE ---
[facility], [facility], [facility] all declined transport of pt to [facility]
--- NOTE | 2019-12-28 19:25 | PC.NURSE ---
[facility] sending CC team to [facility] patient
--- NOTE | 2019-12-28 19:41 | PC.NURSE ---
report called to micu at
--- NOTE | 2019-12-28 19:41 | PC.NURSE ---
levophed decreased to 15mcg
--- NOTE | 2019-12-28 20:00 | PC.NURSE ---
report received. levophed titrated per protocol. aware of bp and hr. waiting on [facility] ground crew to arrive.
[2019-12-28 20:55] LABS: Lactic Acid 3.6 mmol/L (0.7-2.1)
[2019-12-28 20:56] LABS: Troponin I 4.64 ng/ml (0.00-0.034)
--- NOTE | 2019-12-28 21:27 | PC.NURSE ---
report given to ground crew.
--- NOTE | 2019-12-28 21:29 | PC.NURSE ---
called to patient's room by crew request for assist.noted patient to be PEA. cpr initiated. md at bedside
--- NOTE | 2019-12-28 21:31 | PC.NURSE ---
epi given per .
--- NOTE | 2019-12-28 21:39 | PC.NURSE ---
rosc achieved. pt vss. ground crew contacted for advisement. to send flight crew at this time.
--- NOTE | 2019-12-28 22:30 | PC.NURSE ---
care given to md on flight crew. vss. no acute changes.
[2019-12-29 08:12] LABS: ABG Base Excess -35.9 mmol/L (-2.4-2.3); ABG PCO2 36.3 mmhg (35.0-45.0); ABG PH 6.53 mmol/L (7.35-7.45); ABG PO2 227.1 mmhg (80-100); ABG TCO2 4.1 mmhg (23-27)
[2019-12-29 08:13] LABS: ABG Oxygen Saturation 97 % (90-100)
[2019-12-29 08:16] LABS: Oxygen 100% %; Source R FEMORAL
== END 2019-12-28 23:36 | disposition short-term general hospital (02) ==
PROVIDERS: Emergency Provider Emergency Medicine
DX: I46.9 Cardiac arrest, cause unspecified (principal); N17.9 Acute kidney failure, unspecified; E83.51 Hypocalcemia; A41.9 Sepsis, unspecified organism; R65.21 Severe sepsis with septic shock; E10.65 Type 1 diabetes mellitus with hyperglycemia; Z79.4 Long term (current) use of insulin; G40.901 Epilepsy, unspecified, not intractable, with status epilepticus; E03.9 Hypothyroidism, unspecified; E27.1 Primary adrenocortical insufficiency; F11.10 Opioid abuse, uncomplicated; F12.10 Cannabis abuse, uncomplicated; E20.9 Hypoparathyroidism, unspecified; K75.4 Autoimmune hepatitis; F17.210 Nicotine dependence, cigarettes, uncomplicated; Z90.09 Acquired absence of other part of head and neck; Z79.899 Other long term (current) drug therapy
CPT/HCPCS: 31500; 71045; 80053; 80305; 81001; 82803; 83605; 83690; 84439; 84443; 84484; 85007; 85025; 87040; 93005; 96365; 96366; 96367; 96375; 96376; 99291; J2543